=== PATIENT | male | born 1985 | race Caucasian/White ===

== ENCOUNTER 2020-01-26 10:25 | Inpatient (IN) ==
--- NOTE | 2020-01-26 11:09 | Emergency Department Note ---
Impression & Plan Pneumonia due to 2019-nCoV, Hypoxia, Pneumonia ED Provider Note [facility] [id number] [facility] AGE: 34 SEX: M : 1985 ARRIVES VIA: Ambulance INFORMANT: Patient, ED PROVIDER(S): Pratik Gaffney DO CHIEF COMPLAINT: Shortness of breath HPI: The patient is a 34-year-old male who presented to the emergency department from [facility] for an evaluation of difficulty breathing. The patient's had ongoing difficulty breathing for at least 1 week. He was tested for COVID-19 and was positive this week. The patient continued to have worsening difficulty breathing. He was noted to have oxygen saturation in the 80s today and was sent to the emergency department for further evaluation. The patient describes chest pain and cough. He denies having any vomiting but states he did have abdominal pain early in the course of this illness. He denies having any lower extremity swelling or pain. He states his symptoms are moderate to severe with any ambulation or exertion. He denies having any recent falls. The patient was seen by the nursing staff today and was felt to have worsening symptoms. His fever was 103.9 earlier. ROS: See above HPI for pertinent positives & negatives. A total of 10 systems reviewed and were otherwise negative. PAST MEDICAL HISTORY: See Below PAST SURGICAL HISTORY: See Below FAMILY HISTORY: See Below SOCIAL HISTORY: See Below HOME MEDICATIONS: See Below ALLERGIES: See Below VITALS: See Below PHYSICAL EXAMINATION: GENERAL: Patient is awake alert in no acute distress patient is resting comfortably and showing no signs of anxiety EYES: The conjunctivae are clear. The pupils are round and reactive. EARS, NOSE, MOUTH AND THROAT: The nose is without any evidence of any deformity. Mucous membranes are moist. Tongue is midline. NECK: The neck is nontender and supple. RESPIRATORY: Shallow respirations were noted. There were diminished breath sounds noted throughout with scattered rhonchi. CARDIOVASCULAR: Regular rate and rhythm noted there no murmurs rubs or gallops normal S1 normal S2. GASTROINTESTINAL: The abdomen is soft. Abdomen is nontender. MUSCULOSKELETAL/EXTREMITIES: There is no evidence of gross deformity full range of motion is noted in the hips and shoulders. SKIN: There is no obvious evidence of any rash. There are no petechiae, pallor or cyanosis noted. NEUROLOGIC: Patient is awake alert and oriented x3 strength is symmetric patellar reflexes are 2+ bilaterally MEDICAL DECISION MAKING: The patient is a 34-year-old male who presented to the emergency department for an evaluation of difficulty breathing. The patient was recently diagnosed with COVID-19. He has been having fevers. He was started on aspirin and Tylenol for fever and body aches. He was [facility] the [facility] staff [facility] today and was sent to the emergency department for further evaluation because of low oxygen saturation. The patient appeared comfortable but had significant difficulty breathing with any exertion and was found to be hypoxic. On nasal cannula oxygen his saturations were acceptable. Chest x-ray revealed bilateral infiltrates. He was treated with IV antibiotics however I do feel this is much more consistent with COVID-19 pneumonia. I discussed the patient's laboratory and radiographic studies with the on-call [facility] hospitalist. They have agreed to evaluate the patient. He was started on Decadron. He was also given IV antibiotics. Triage Nursing notes reviewed. Prior medical records reviewed Vital Signs: reviewed and remarkable for hypoxia. Differential diagnosis: Reactive airway disease, pneumonia, pneumothorax, COPD, CHF, infections, cardiac ischemia, pulmonary embolism, musculoskeletal, gastrointestinal, as well as other pathologies. ER treatment provided: See below Diagnostics interpreted by me: ECG: EKG was obtained in the emergency department. My interpretation is normal sinus rhythm at 85 bpm. There is no ectopy. There was no acute ST segment abnormalities noted. No previous tracing was available for comparison. Cardiac Monitoring: An order was placed for continuous cardiac monitoring. The monitor shows a rate of 82 bpm with sinus rhythm. Laboratory studies: As stated above and show below. Imaging studies: See below Consultation(s): 1230: I discussed this case with Dr. Hamilton. Past Med/Surg History Medical History History of HPV infection Hyperlipidemia Family History (Updated 01/26/20 @ 13:11 by Lala Hamilton DO) Denies family history of Myocardial infarction Stroke Social History Smoking Status: Never smoker Hx Alcohol Use: No Feels Safe at Home: Yes Allergies Allergies Allergy/AdvReac Type Severity Reaction Status Date / Time No Known Allergies Allergy Unverified 01/26/20 11:54 Home Meds Home Medications Medication Instructions Recorded Confirmed acetaminophen [Tylenol] 650 mg PO UD PRN 01/26/20 01/26/20 aspirin [Aspir-81] 81 mg PO DAILY 01/26/20 01/26/20 Results & Data (ED) Vital Signs Vital Signs - 24 hr 01/26/20 10:32 01/26/20 10:35 01/26/20 10:44 Temperature 37.1 C Temperature Source Oral Pulse Rate 85 85 85 Pulse Rate from SpO2 Sensor 85 85 Respiratory Rate 24 20 22 Blood Pressure 119/78 119/78 Blood Pressure Mean 85 91 Pulse Oximetry 94 94 88 L Oxygen Delivery Method Nasal Cannula Nasal Cannula Room Air Nasal Cannula Oxygen Flow Rate 3 3 0 Sepsis Recent Fever Within 48 Hours No Sepsis New/Unexplained Change in Mental Status No Sepsis Action Taken by Nursing No Action Required Oxygen Flow Rate - Titration 2 Pulse Oximetry Post Tiitration 93 01/26/20 11:00 01/26/20 11:02 01/26/20 11:30 Temperature Temperature Source Pulse Rate 85 86 89 Pulse Rate from SpO2 Sensor 84 90 Respiratory Rate 22 22 22 Blood Pressure Blood Pressure Mean Pulse Oximetry 94 94 93 Oxygen Delivery Method Nasal Cannula Nasal Cannula Nasal Cannula Oxygen Flow Rate 3 3 3 Sepsis Recent Fever Within 48 Hours Sepsis New/Unexplained Change in Mental Status Sepsis Action Taken by Nursing Oxygen Flow Rate - Titration Pulse Oximetry Post Tiitration 01/26/20 12:00 01/26/20 12:01 01/26/20 12:30 Temperature Temperature Source Pulse Rate 82 82 79 Pulse Rate from SpO2 Sensor 81 82 79 Respiratory Rate 22 20 22 Blood Pressure 117/79 128/76 Blood Pressure Mean 92 88 Pulse Oximetry 92 93 94 Oxygen Delivery Method Nasal Cannula Nasal Cannula Nasal Cannula Oxygen Flow Rate 3 3 3 Sepsis Recent Fever Within 48 Hours Sepsis New/Unexplained Change in Mental Status Sepsis Action Taken by Nursing Oxygen Flow Rate - Titration Pulse Oximetry Post Tiitration 01/26/20 12:31 01/26/20 13:00 01/26/20 13:30 Temperature Temperature Source Pulse Rate 80 79 75 Pulse Rate from SpO2 Sensor 80 79 76 Respiratory Rate 22 20 22 Blood Pressure 112/67 Blood Pressure Mean 80 Pulse Oximetry 94 92 93 Oxygen Delivery Method Nasal Cannula Nasal Cannula Nasal Cannula Oxygen Flow Rate 3 3 3 Sepsis Recent Fever Within 48 Hours Sepsis New/Unexplained Change in Mental Status Sepsis Action Taken by Nursing Oxygen Flow Rate - Titration Pulse Oximetry Post Tiitration 01/26/20 13:31 Temperature Temperature Source Pulse Rate 76 Pulse Rate from SpO2 Sensor 75 Respiratory Rate 20 Blood Pressure Blood Pressure Mean Pulse Oximetry 93 Oxygen Delivery Method Nasal Cannula Oxygen Flow Rate 3 Sepsis Recent Fever Within 48 Hours Sepsis New/Unexplained Change in Mental Status Sepsis Action Taken by Nursing Oxygen Flow Rate - Titration Pulse Oximetry Post Tiitration Home Medications Current Medication List: was personally reviewed by me Laboratory Data Attestation: I reviewed the patient's lab results. Result diagrams: 01/26/20 10:40 01/26/20 10:40 Lab Results 01/26/20 01/26/20 01/26/20 Range/Units 10:40 10:40 10:40 WBC 3.73 L (4.8-10.8) K/uL RBC 5.55 (4.7-6.1) M/uL Hgb 16.2 (14.0-18.0) g/dL Hct 47.6 (42-52) % MCV 85.8 (80-100) fL MCH 29.2 (25-34) pg MCHC 34.0 (32-36) g/dL RDW Std Deviation 41.1 (36.4-46.3) fL RDW Coeff of Meena 12.9 (11.5-14.5) % Plt Count 148 (130-400) K/uL MPV 10.9 H (7.4-10.4) fL Immature Gran % (Auto) 0.3 % Neut % (Auto) 70.7 % Lymph % (Auto) 22.3 % Fisher % (Auto) 6.7 % Eos % (Auto) 0.0 % Baso % (Auto) 0.0 % Neut # (Auto) 2.64 (1.4-6.5) K/uL Lymph # (Auto) 0.83 L (1.2-3.4) K/uL Fisher # (Auto) 0.25 (0.11-0.59) K/uL Eos # (Auto) 0.00 (0-0.5) K/uL Baso # (Auto) 0.00 (0-0.2) K/uL Immature Gran # (Auto) 0.01 (0.00-0.02) K/uL PT 11.5 (9.0-12.0) Seconds INR 1.1 (0.9-1.1) APTT 34.4 H (21.0-31.0) Seconds PTT Ratio 1.2 VBG pH (7.36-7.41) VBG pCO2 (38-50) mmHg VBG pO2 mmHg VBG HCO3 mmol/L VBG O2 Saturation % VBG Base Excess mEq/L Barometric Pressure mm/Hg Sodium 131 L (136-145) mmol/L Potassium 3.5 (3.5-5.1) mmol/L Chloride 95 L (98-107) mmol/L Carbon Dioxide 30 (21-32) mmol/L Anion Gap 6.0 (3-11) BUN 9 (7-18) mg/dl Creatinine 0.91 (0.6-1.4) mg/dl Est Cr Clr Drug Dosing 118.9 ml/min Est GFR ( Amer) 125.2 Est GFR (Non-Af Amer) 108.0 BUN/Creatinine Ratio 10.1 (10-20) Glucose 99 (70-99) mg/dl Lactate (0.4-2.0) mmol/L Calcium 8.2 L (8.5-10.1) mg/dl Magnesium 2.4 (1.8-2.4) mg/dl Total Bilirubin 0.6 (0.2-1) mg/dl AST 57 H (15-37) U/L ALT 36 (12-78) U/L Alkaline Phosphatase 42 L (45-117) U/L Troponin I < 0.015 (0-0.045) ng/ml Total Protein 7.6 (6.4-8.2) gm/dl Albumin 3.1 L (3.4-5.0) gm/dl Globulin 4.5 H (2.5-4.0) gm/dl Albumin/Globulin Ratio 0.7 L (0.9-2) Procalcitonin (0-0.5) ng/ml COVID-19 Eval Order SARS-CoV-2, RNA, NAAT (NEGATIVE) Blood Type Antibody Screen 01/26/20 01/26/20 01/26/20 Range/Units 10:40 11:18 11:18 WBC (4.8-10.8) K/uL RBC (4.7-6.1) M/uL Hgb (14.0-18.0) g/dL Hct (42-52) % MCV (80-100) fL MCH (25-34) pg MCHC (32-36) g/dL RDW Std Deviation (36.4-46.3) fL RDW Coeff of Meena (11.5-14.5) % Plt Count (130-400) K/uL MPV (7.4-10.4) fL Immature Gran % (Auto) % Neut % (Auto) % Lymph % (Auto) % Fisher % (Auto) % Eos % (Auto) % Baso % (Auto) % Neut # (Auto) (1.4-6.5) K/uL Lymph # (Auto) (1.2-3.4) K/uL Fisher # (Auto) (0.11-0.59) K/uL Eos # (Auto) (0-0.5) K/uL Baso # (Auto) (0-0.2) K/uL Immature Gran # (Auto) (0.00-0.02) K/uL PT (9.0-12.0) Seconds INR (0.9-1.1) APTT (21.0-31.0) Seconds PTT Ratio VBG pH (7.36-7.41) VBG pCO2 (38-50) mmHg VBG pO2 mmHg VBG HCO3 mmol/L VBG O2 Saturation % VBG Base Excess mEq/L Barometric Pressure mm/Hg Sodium (136-145) mmol/L Potassium (3.5-5.1) mmol/L Chloride (98-107) mmol/L Carbon Dioxide (21-32) mmol/L Anion Gap (3-11) BUN (7-18) mg/dl Creatinine (0.6-1.4) mg/dl Est Cr Clr Drug Dosing ml/min Est GFR ( Amer) Est GFR (Non-Af Amer) BUN/Creatinine Ratio (10-20) Glucose (70-99) mg/dl Lactate (0.4-2.0) mmol/L Calcium (8.5-10.1) mg/dl Magnesium (1.8-2.4) mg/dl Total Bilirubin (0.2-1) mg/dl AST (15-37) U/L ALT (12-78) U/L Alkaline Phosphatase (45-117) U/L Troponin I (0-0.045) ng/ml Total Protein (6.4-8.2) gm/dl Albumin (3.4-5.0) gm/dl Globulin (2.5-4.0) gm/dl Albumin/Globulin Ratio (0.9-2) Procalcitonin 0.16 (0-0.5) ng/ml COVID-19 Eval [facility] SARS-CoV-2, RNA, NAAT POSITIVE A* (NEGATIVE) Blood Type Antibody Screen 01/26/20 01/26/20 01/26/20 Range/Units 11:24 11:24 13:03 WBC (4.8-10.8) K/uL RBC (4.7-6.1) M/uL Hgb (14.0-18.0) g/dL Hct (42-52) % MCV (80-100) fL MCH (25-34) pg MCHC (32-36) g/dL RDW Std Deviation (36.4-46.3) fL RDW Coeff of Meena (11.5-14.5) % Plt Count (130-400) K/uL MPV (7.4-10.4) fL Immature Gran % (Auto) % Neut % (Auto) % Lymph % (Auto) % Fisher % (Auto) % Eos % (Auto) % Baso % (Auto) % Neut # (Auto) (1.4-6.5) K/uL Lymph # (Auto) (1.2-3.4) K/uL Fisher # (Auto) (0.11-0.59) K/uL Eos # (Auto) (0-0.5) K/uL Baso # (Auto) (0-0.2) K/uL Immature Gran # (Auto) (0.00-0.02) K/uL PT (9.0-12.0) Seconds INR (0.9-1.1) APTT (21.0-31.0) Seconds PTT Ratio VBG pH 7.40 (7.36-7.41) VBG pCO2 48 (38-50) mmHg VBG pO2 29 mmHg VBG HCO3 29 mmol/L VBG O2 Saturation < 60.0 % VBG Base Excess 3.0 mEq/L Barometric Pressure 741.1 mm/Hg Sodium (136-145) mmol/L Potassium (3.5-5.1) mmol/L Chloride (98-107) mmol/L Carbon Dioxide (21-32) mmol/L Anion Gap (3-11) BUN (7-18) mg/dl Creatinine (0.6-1.4) mg/dl Est Cr Clr Drug Dosing ml/min Est GFR ( Amer) Est GFR (Non-Af Amer) BUN/Creatinine Ratio (10-20) Glucose (70-99) mg/dl Lactate 1.1 (0.4-2.0) mmol/L Calcium (8.5-10.1) mg/dl Magnesium (1.8-2.4) mg/dl Total Bilirubin (0.2-1) mg/dl AST (15-37) U/L ALT (12-78) U/L Alkaline Phosphatase (45-117) U/L Troponin I (0-0.045) ng/ml Total Protein (6.4-8.2) gm/dl Albumin (3.4-5.0) gm/dl Globulin (2.5-4.0) gm/dl Albumin/Globulin Ratio (0.9-2) Procalcitonin (0-0.5) ng/ml COVID-19 Eval Order SARS-CoV-2, RNA, NAAT (NEGATIVE) Blood Type Cancelled Antibody Screen Cancelled Administered Medications Discontinued Medications Dexamethasone (Dexamethasone Sod Inj 10 Mg/Ml Vial) 10 mg IV NOW ONE Stop: 01/26/20 11:23 Last Admin: 01/26/20 11:58 Dose: 10 mg Documented by: [id number] Piperacillin Sod/Tazobactam Sod (Zosyn) 4.5 gm in 120 mls @ 240 mls/hr IV NOW ONE Stop: 01/26/20 12:45 Last Infusion: 01/26/20 13:22 Dose: 0 mls/hr Documented by: [id number] Admin: 01/26/20 12:49 Dose: 240 mls/hr Documented by: [id number] Imaging Data Radiologist's Impression: Patient: VINEET GRUBER [id number] Date: 01/26/20MR#: [id number]: Acct ID:[id number]: Date: 1985[facility] Zip: Age: 34Location: EDSex: MRoom/Bed:Att Phy:Diagnosis: SO BPri Phy: PCP,NOService Date: 01/26/20Fa Phy:Interpreting Phy: Delroy Gonzalez MDAdmit Phy: Ordering Phy: Pratik Gaffney DO cc: ~ XR chest 1V portable CLINICAL HISTORY: SEPSIS COMPARISON STUDY: No previous studies for comparison. FINDINGS: There is mild elevation of the right hemidiaphragm. No pneumothorax or pleural effusion is noted. Multifocal bilateral airspace opacities are present. Cardiac size is at the upper limits of normal. There is no evidence for pulmonary edema. IMPRESSION: Multifocal bilateral airspace opacities consistent with an infectious process. Radiographic follow up is recommended. ACT 112: Negative or not required by law. Electronically signed by: Delroy Gonzalez M.D. 01/26/2020 11:40 AM Dictated: 01/26/20 1138Transcribed: 01/26/20 1138 Blood Pressure Blood Pressure Findings: Normal blood pressure Discharge Plan Visit Data Chief Complaint: Shortness of Breath/Dyspnea ED Provider: Pratik Gaffney Discharge Problem: Pneumonia due to 2019-nCoV, Hypoxia, Pneumonia Patient Disposition: Admitted As Inpatient Condition: Good Discharge Instructions Krames/Other Patient Handouts: 2019-nCoV Interventions: ED Discharge Assessment Last Done: 01/26/20 13:38 Forms Stand Alone Forms: [place] Prescriptions Prescriptions: No Action acetaminophen [Tylenol] 325 mg Tablet 650 mg PO UD PRN (Reason: Fever Or Pain) RF: 0 aspirin [Aspir-81] 81 mg Tablet,Delayed Release (Dr/Ec) 81 mg PO DAILY RF: 0 Referrals Referrals: PCP,NO [Primary Care Provider] -
[2020-01-26 11:17] LABS: Hematocrit (blood only) 47.6 % (42-52); Hemoglobin 16.2 g/dL (14.0-18.0); Immature Granulocytes # (auto) 0.01 K/uL (0.00-0.02); Immature Granulocytes % (auto) 0.3 %; Lymphocytes # (auto) 0.83 K/uL (1.2-3.4); Lymphocytes % (auto) 22.3 %; Mean Corpuscular Hemoglobin 29.2 pg (25-34); Mean Corpuscular Volume 85.8 fL (80-100); Mean Platelet Volume 10.9 fL (7.4-10.4); Monocytes # (auto) 0.25 K/uL (0.11-0.59); Monocytes % (auto) 6.7 %; Neutrophils # (auto) 2.64 K/uL (1.4-6.5); Neutrophils % (auto) 70.7 %; Platelet Count 148 K/uL (130-400); RDW Coefficient of Variation 12.9 % (11.5-14.5); RDW Standard Deviation 41.1 fL (36.4-46.3); Red Blood Count 5.55 M/uL (4.7-6.1); White Blood Count 3.73 K/uL (4.8-10.8)
[2020-01-26] MEDS ORDERED: DEXAMETHASONE SOD INJ 10 MG/ML VIAL IV ONE (11:22)
[2020-01-26 11:28] LABS: INR 1.1 (0.9-1.1); Partial Thromboplastin Ratio 1.2; Partial Thromboplastin Time 34.4 Seconds (21.0-31.0); Prothrombin Time 11.5 Seconds (9.0-12.0)
[2020-01-26 11:33] LABS: Alanine Aminotransferase 36 U/L (12-78); Albumin Level 3.1 gm/dl (3.4-5.0); Aspartate Aminotransferase 57 U/L (15-37); BUN Creatinine Ratio 10.1 (10-20); Blood Urea Nitrogen 9 mg/dl (7-18); Calcium 8.2 mg/dl (8.5-10.1); Carbon Dioxide 30 mmol/L (21-32); Chloride 95 mmol/L (98-107); Creatinine Clr Calc Pharmacy 118.9 ml/min; Est GFR (African American) 125.2; Glucose 99 mg/dl (70-99); Magnesium 2.4 mg/dl (1.8-2.4); Potassium 3.5 mmol/L (3.5-5.1); Sodium 131 mmol/L (136-145)
[2020-01-26 11:38] LABS: Albumin Globulin Ratio 0.7 (0.9-2); Alkaline Phosphatase 42 U/L (45-117); Bilirubin,Total 0.6 mg/dl (0.2-1); Globulin 4.5 gm/dl (2.5-4.0); Total Protein 7.6 gm/dl (6.4-8.2); Troponin I < 0.015 ng/ml (0-0.045)
--- NOTE | 2020-01-26 11:42 | XRay Report ---
XR chest 1V portable CLINICAL HISTORY: SEPSIS COMPARISON STUDY: No previous studies for comparison. FINDINGS: There is mild elevation of the right hemidiaphragm. No pneumothorax or pleural effusion is noted. Multifocal bilateral airspace opacities are present. Cardiac size is at the upper limits of no rmal. There is no evidence for pulmonary edema. IMPRESSION: Multifocal bilateral airspace opacities consistent with an infectious process. Radiograp hic follow up is recommended. ACT 112: Negative or not required by law. Electronically signed by: Delroy Gonzalez M.D. 01/26/2020 11:40 AM
[2020-01-26 11:45] LABS: HCO3 VBG 29 mmol/L; PCO2 VBG 48 mmHg (38-50); PO2 VBG 29 mmHg
[2020-01-26 11:52] LABS: Oxygen Saturation VBG < 60.0 %
[2020-01-26] MEDS ORDERED: PIPERACILLIN/TAZOBACTAM 4.5 GM/120 ML BAG IV ONE (12:16)
[2020-01-26] MEDS ORDERED: PIPERACILL/TAZOBAC CONSULT ACTIVE PRN ×2 (12:16→15:38)
--- NOTE | 2020-01-26 12:57 | Electrocardiogram Report ---
Test Reason : Blood Pressure : / mmHG Vent. Rate : 085 BPM Atrial Rate : 085 BPM P-R Int : 178 ms QRS Dur : 080 ms QT Int : 356 ms P-R-T Axes : 028 078 032 degrees QTc Int : 423 ms Normal sinus rhythm Possible Left atrial enlargement Borderline ECG No previous ECGs available Confirmed by Pratik Zaldivar ([id number]) on 01/26/2020 12:56:51 PM Referred By: Confirmed By:Pratik Zaldivar
--- NOTE | 2020-01-26 13:14 | History & Physical Report ---
Date of Service January 26, 2020 Assessment & Plan (1) Hypoxia: COVID + on Wednesday at facility, again in the ED CXR noted for b/l PNA Started on zosyn in the ED, will continue Procal neg and lactic acid is WNL, will have a low threshold to continue if pt is improving Started on dexamethasone in the ED, will continue Will start remdesivir given O2 sats in the 80s on RA and 93-94 on 3L Blood cx pending K is low normal, NS with K (2) Constipation: MOM,senna for constipation (3) DVT prophylaxis: Heparin BID for DVT proph Of note, aspirin 81mg listed on pt's home medications Pt denies hx of [place] or daily aspirin 81mg use, this will be held History of Present Illness Primary Care Provider: NO PCP 34 y/o M c/o SOB. Pt was dx at [facility] with COVID on Wednesday. He has had progressive SALAZAR since that time and was found to be hypoxic in the mid-80s at the facility prior to being transferred to the ED at [facility]. He denies SOB at rest. He states he has been able to eat without issue, but his appetite is low. He has not had a bowel movement in 3-4 days. No diarrhea prior. No chest pain. Pt denies abd pain, LE pain or swelling. Pt has been having fevers. Pt states he has been getting tylenol at the facility Pt started on zosyn, dexamethasone, O2 via NC and states he is feeling better overall, but still feels generally unwell. He has not been OOB to see if his SALAZAR is improving. Allergies Allergy/AdvReac Type Severity Reaction Status Date / Time No Known Allergies Allergy Unverified 01/26/20 11:54 Home Medications Medication Instructions Recorded Confirmed Type acetaminophen [Tylenol] 650 mg PO UD PRN 01/26/20 01/26/20 History aspirin [Aspir-81] 81 mg PO DAILY 01/26/20 01/26/20 History Past Med/Surg History Medical History History of HPV infection Hyperlipidemia Family History (Updated 01/26/20 @ 13:11 by Lala Hamilton DO) Denies family history of Myocardial infarction Stroke Social History Smoking Status: Never smoker Hx Alcohol Use: No Feels Safe at Home: Yes Review of Systems Review of Systems: Pertinent positives and negatives reviewed in HPI--all others negative Physical Exam Constitutional: WD/WN, vitals as above Eyes: normal visual lopez by confrontation and + anicteric sclerae Neck: normal visual inspection and trachea midline Respiratory: normal respiratory effort, lungs clear to auscultation (using infection control stethoscope) Cardiovascular: Rate/Rhythm: regular rate and regular rhythm Gastrointestinal (Abdomen): Inspection/Auscultation: abdomen not distended Percussion/Palpation: abdomen soft; abdomen nontender Musculoskeletal: Head/Neck/Chest: normocephalic and head atraumatic negative for edema, peripheral pulses intact Skin: no rashes, warm and dry Neurologic: awake; not confused Speech / Cognition: normal speech Psychiatric: A+Ox3, euthymic affect Results & Data Results & Data ([facility]) Vital Signs (Past 12 Hours) Vital Signs Temp Pulse Resp BP Pulse Ox 01/26/20 12:31 80 22 94 01/26/20 12:30 79 22 128/76 94 01/26/20 12:01 82 20 93 01/26/20 12:00 82 22 117/79 92 01/26/20 11:30 89 22 93 01/26/20 11:02 86 22 94 01/26/20 11:00 85 22 94 01/26/20 10:44 37.1 C 85 22 119/78 88 L 01/26/20 10:35 85 20 94 01/26/20 10:32 85 24 119/78 94 Diagnostic Findings CXR: b/l PNA PG Care Time/CCT Total # of Minutes Spent Total Time Spent with Patient: Total time spent is greater than 50% in coordination of care (as documented) at patient's floor/unit and/or counseling patient: Coding Level of Care Code 13153 Initial Inpt Care Lvl 3 Diagnoses Hypoxia R09.02 Constipation K59.00 DVT prophylaxis Z29.9
[2020-01-26] MEDS ORDERED: ACETAMINOPHEN 325 MG TAB PO PRN (15:38)
[2020-01-26] MEDS ORDERED: REMDESIVIR 200 MG in SODIUM CHLORIDE 0.9% 210 ML IV STA (15:38)
[2020-01-26] MEDS ORDERED: INFLUENZA ADMINISTRATION CHARGE ONE (15:57)
[2020-01-26] MEDS ORDERED: INFLUENZA VIRUS QUAD VACCINE 0.5 ML SYR IM ONE (15:57)
[2020-01-26] MEDS: NSS + 20MEQ KCL 20 MEQ/1,000 ML BAG IV SCH (17:20)
[2020-01-26] MEDS: SENNA 8.6 MG TAB PO SCH (17:49)
[2020-01-26] MEDS: MAGNESIUM HYDROXIDE SUSP 30 ML UDC PO SCH (17:50)
[2020-01-26] MEDS: PIPERACILLIN/TAZOBACTAM 3.375 GM in DEXTROSE 5% 100 ML IV SCH (17:52)
[2020-01-26] MEDS: SODIUM CHLORIDE 0.9% 10ML FLUSH IV SCH (18:27)
[2020-01-26] MEDS: HEPARIN SOD 5,000 UNIT/0.5 ML VIAL SQ SCH (20:45)
[2020-01-26 21:24] LABS: Appearance Urine Clear (Clear); Bacteria Urine Automated Negative (Negative); Bilirubin Urine Negative (Negative); Blood Urine Negative (Negative); Color Urine Yellow; Epithelial Cell Urine Auto >30 /lpf (0-5); Glucose Urine UA Negative (Negative); Ketones Urine 1+ (Negative); Leukocyte Esterase Urine Negative (Negative); Nitrite Urine Negative (Negative); Protein Urine 2+ (Negative); RBC Urine Automated 0-4 /hpf (0-4); Urobilinogen Urine Negative (Negative); pH Urine 5.5 (4.5-7.5)
[2020-01-26 21:37] LABS: Mucus Urine Present (None Prsent)
[2020-01-27] MEDS: PIPERACILLIN/TAZOBACTAM 3.375 GM in DEXTROSE 5% 100 ML IV SCH ×3 (01:44→21:08)
[2020-01-27] MEDS: NSS + 20MEQ KCL 20 MEQ/1,000 ML BAG IV SCH ×3 (01:44→21:14)
[2020-01-27 06:37] LABS: BUN Creatinine Ratio 14.5 (10-20); Calcium 7.9 mg/dl (8.5-10.1); Creatinine Clr Calc Pharmacy 116.5 ml/min; Est GFR (African American) 120.4; Est GFR (Non-African American) 103.9; Potassium 4.5 mmol/L (3.5-5.1)
[2020-01-27] MEDS: HEPARIN SOD 5,000 UNIT/0.5 ML VIAL SQ SCH ×2 (09:04→21:10)
[2020-01-27] MEDS: dexAMETHasone 6 MG in SYRINGE 0 ML IV SCH (09:05)
[2020-01-27] MEDS: SENNA 8.6 MG TAB PO SCH (09:06)
[2020-01-27] MEDS: MAGNESIUM HYDROXIDE SUSP 30 ML UDC PO SCH (09:06)
[2020-01-27] MEDS: REMDESIVIR 100 MG in SODIUM CHLORIDE 0.9% 230 ML IV SCH (16:01)
[2020-01-27] MEDS: SODIUM CHLORIDE 0.9% 10ML FLUSH IV SCH (17:36)
--- NOTE | 2020-01-27 22:26 | Hospitalist Progress Note ---
Date of Service January 27, 2020 Assessment & Plan (1) Hypoxia: COVID + on Wednesday at facility, again in the ED CXR noted for b/l PNA Started on zosyn in the ED, will continue Procal neg and lactic acid is WNL Started on dexamethasone in the ED, will continue Will contiue remdesivir #day 2. Patient is on oxymask. will continue antibiotics as well. K is low normal, NS with K (2) Constipation: MOM,senna for constipation (3) DVT prophylaxis: Heparin BID for DVT proph Of note, aspirin 81mg listed on pt's home medications Pt denies hx of [place] or daily aspirin 81mg use, this will be held Admission and Anticipated Discharge Date Admission Date: January 26, 2020 Subjective 34 yo male reports feeling mildly better today. However, requiring more oxygen. She has no new complaints at this time. Review of Systems Review of Systems: All systems reviewed & are unremarkable except as noted in HPI & below Physical Exam Physical Exam: Constitutional: WD/WN, vitals as above Eyes: normal visual lopez by confrontation and + anicteric sclerae Neck: normal visual inspection and trachea midline Respiratory: normal respiratory effort, lungs clear to auscultation (using infection control stethoscope) Cardiovascular: Rate/Rhythm: regular rate and regular rhythm Gastrointestinal (Abdomen): Inspection/Auscultation: abdomen not distended Percussion/Palpation: abdomen soft; abdomen nontender Musculoskeletal: \Head/Neck/Chest: normocephalic and head atraumatic negative for edema, peripheral pulses intact Skin: no rashes, warm and dry Neurologic: awake; not confused Speech / Cognition: normal speech Psychiatric: A+Ox3, euthymic affect Results & Data Results & Data ([facility]) Vital Signs (Past 12 Hours) Vital Signs Temp Pulse Pulse Resp BP Pulse Ox 01/27/20 21:16 36.9 C 65 20 117/76 93 01/27/20 14:20 64 01/27/20 14:17 36.6 C 64 16 110/70 94 01/27/20 11:30 36.7 C 67 18 115/73 92 PG Care Time/CCT Total # of Minutes Spent Total Time Spent with Patient: Total time spent is greater than 50% in coordination of care (as documented) at patient's floor/unit and/or counseling patient: Coding Level of Care Code 74453 Subseq Hosp Care Lvl 3 Diagnoses Hypoxia R09.02 Constipation K59.00 DVT prophylaxis Z29.9 Time Spent (min) 35
[2020-01-28] MEDS: PIPERACILLIN/TAZOBACTAM 3.375 GM in DEXTROSE 5% 100 ML IV SCH ×3 (04:13→21:24)
[2020-01-28 07:05] LABS: BUN Creatinine Ratio 17.9 (10-20); Calcium 7.9 mg/dl (8.5-10.1); Creatinine Clr Calc Pharmacy 134.3 ml/min; Est GFR (African American) 131.9; Est GFR (Non-African American) 113.8; Potassium 4.5 mmol/L (3.5-5.1)
[2020-01-28] MEDS: NSS + 20MEQ KCL 20 MEQ/1,000 ML BAG IV SCH ×2 (07:46→17:47)
[2020-01-28] MEDS: SENNA 8.6 MG TAB PO SCH (08:06)
[2020-01-28] MEDS: HEPARIN SOD 5,000 UNIT/0.5 ML VIAL SQ SCH ×2 (08:06→21:34)
[2020-01-28] MEDS: dexAMETHasone 6 MG in SYRINGE 0 ML IV SCH (08:06)
[2020-01-28] MEDS: MAGNESIUM HYDROXIDE SUSP 30 ML UDC PO SCH (08:07)
[2020-01-28] MEDS: REMDESIVIR 100 MG in SODIUM CHLORIDE 0.9% 230 ML IV SCH (16:04)
[2020-01-28] MEDS: SODIUM CHLORIDE 0.9% 10ML FLUSH IV SCH (17:30)
--- NOTE | 2020-01-28 22:31 | Hospitalist Progress Note ---
Date of Service January 28, 2020 Assessment & Plan (1) Hypoxia: COVID + on Wednesday at facility, again in the ED CXR noted for b/l PNA Started on zosyn in the ED, will continue Procal neg and lactic acid is WNL Started on dexamethasone in the ED, will continue day 3 of 10. Will contiue remdesivir #day 3. Patient was on oxymask 10 liters/ transitioned to nasal cannula 7 liters flow will continue antibiotics as well. (2) Constipation: MOM,senna for constipation (3) DVT prophylaxis: Heparin BID for DVT proph Of note, aspirin 81mg listed on pt's home medications Pt denies hx of [place] or daily aspirin 81mg use, this will be held Admission and Anticipated Discharge Date Admission Date: January 26, 2020 Subjective Patient is feeling better, breathing more comfortably. Patient states he is happy with his progress. Oxygen requirements have decreased from 10 to 7 liters nsal cannula. Review of Systems Review of Systems: All systems reviewed & are unremarkable except as noted in HPI & below Physical Exam Physical Exam: Constitutional: WD/WN, vitals as above Eyes: normal visual lopez by confrontation and + anicteric sclerae Neck: normal visual inspection and trachea midline Respiratory: normal respiratory effort, lungs clear to auscultation (using infection control stethoscope) Cardiovascular: Rate/Rhythm: regular rate and regular rhythm Gastrointestinal (Abdomen): Inspection/Auscultation: abdomen not distended Percussion/Palpation: abdomen soft; abdomen nontender Musculoskeletal: \Head/Neck/Chest: normocephalic and head atraumatic negative for edema, peripheral pulses intact Skin: no rashes, warm and dry Neurologic: awake; not confused Speech / Cognition: normal speech Psychiatric: A+Ox3, euthymic affect Results & Data Results & Data ([facility]) Vital Signs (Past 12 Hours) Vital Signs Temp Pulse Pulse Resp BP BP Pulse Ox 01/28/20 19:00 37.1 C 62 17 125/81 91 01/28/20 14:56 36.8 C 64 18 128/78 92 01/28/20 14:20 52 L 01/28/20 12:25 36.3 C L 76 18 124/77 93 PG Care Time/CCT Total # of Minutes Spent Total Time Spent with Patient: Total time spent is greater than 50% in coordination of care (as documented) at patient's floor/unit and/or counseling patient: Coding Level of Care Code 09216 Subseq Hosp Care Lvl 3 Diagnoses Hypoxia R09.02 Constipation K59.00 DVT prophylaxis Z29.9
[2020-01-29] MEDS: PIPERACILLIN/TAZOBACTAM 3.375 GM in DEXTROSE 5% 100 ML IV SCH ×2 (04:23→12:33)
[2020-01-29] MEDS: NSS + 20MEQ KCL 20 MEQ/1,000 ML BAG IV SCH (04:23)
[2020-01-29 06:45] LABS: Hematocrit (blood only) 45.6 % (42-52); Hemoglobin 15.1 g/dL (14.0-18.0); Mean Corpuscular Hemoglobin 29.3 pg (25-34); Mean Corpuscular Hgb Conc 33.1 g/dL (32-36); Mean Corpuscular Volume 88.5 fL (80-100); Mean Platelet Volume 10.5 fL (7.4-10.4); Platelet Count 271 K/uL (130-400); RDW Coefficient of Variation 13.2 % (11.5-14.5); RDW Standard Deviation 43.2 fL (36.4-46.3); Red Blood Count 5.15 M/uL (4.7-6.1); White Blood Count 5.47 K/uL (4.8-10.8)
[2020-01-29 07:26] LABS: Albumin Level 2.6 gm/dl (3.4-5.0); BUN Creatinine Ratio 14.6 (10-20); Calcium 7.9 mg/dl (8.5-10.1); Creatinine Clr Calc Pharmacy 121.7 ml/min; Est GFR (African American) 125.2; Potassium 4.7 mmol/L (3.5-5.1)
[2020-01-29 07:31] LABS: Albumin Globulin Ratio 0.7 (0.9-2); Bilirubin,Total 0.8 mg/dl (0.2-1); Ferritin 1746.3 ng/ml (8-388); Total Protein 6.6 gm/dl (6.4-8.2)
[2020-01-29] MEDS: dexAMETHasone 6 MG in SYRINGE 0 ML IV SCH (09:06)
[2020-01-29] MEDS: SENNA 8.6 MG TAB PO SCH (09:08)
[2020-01-29] MEDS: HEPARIN SOD 5,000 UNIT/0.5 ML VIAL SQ SCH ×2 (09:08→22:00)
[2020-01-29] MEDS: MAGNESIUM HYDROXIDE SUSP 30 ML UDC PO SCH (09:21)
--- NOTE | 2020-01-29 13:56 | Hospitalist Progress Note ---
Date of Service January 29, 2020 Assessment & Plan (1) Pneumonia due to 2019-nCoV: see below Dexamethasone, Remdesivir (2) Hypoxia: COVID + on Wednesday at facility, again in the ED CXR noted for b/l PNA acute hypoxic respiratory failure initially on 15L mask, down to 5-6 liters NC today, breathing comfortably continue Remdesivir, day 4 today continue Dexamethasone, day 4 today stop antibiotics as there is no sign of bacterial pneumonia, procalcitonin negative will likely be here a few more days, try to wean oxygen as tolerated Procal neg and lactic acid is WNL Started on dexamethasone in the ED, will continue day 3 of 10. Will contiue remdesivir #day 3. Patient was on oxymask 10 liters/ transitioned to nasal cannula 7 liters flow will continue antibiotics as well. (3) Constipation: 5 days since last BM, he is passing flatus eating well, no nausea will give Miralax daily starting today (4) DVT prophylaxis: Heparin BID for DVT proph Of note, aspirin 81mg listed on pt's home medications Pt denies hx of [place] or daily aspirin 81mg use, this will be held Admission and Anticipated Discharge Date Admission Date: January 26, 2020 Subjective patient still constipated, feeling a lot better in terms of his breathing has a mild cough, down to 5-6 liters NC today he is eating well reviewed the chart today discussed with him that he will be here a few more days communicated with him via [employer] on the iPad Review of Systems Review of Systems: All systems reviewed & are unremarkable except as noted in Subjective Constitutional: + fatigue and + weakness; no fever, no chills and no sweats Respiratory: + cough and + dyspnea on exertion; no dyspnea Gastrointestinal: + constipation; no abdominal pain, no nausea, no vomiting and no diarrhea/loose stools Physical Exam Constitutional: WD/WN, vitals as above Neck: trachea midline, no thyromegaly Respiratory: normal respiratory effort, lungs clear to auscultation Cardiovascular: RRR, no murmur, no edema Gastrointestinal (Abdomen): normal bowel sounds, soft, nontender, no hepatosplenomegaly Musculoskeletal: no cyanosis or clubbing, extremities motor strength 5/5 Skin: no rashes, warm and dry Neurologic: patellar DTR's 2+ bilat, sensation intact and PERRL, EOMI, accommodation nl, no face palsy, no dysarthria Psychiatric: A+Ox3, euthymic affect Lymphatic: no cervical or axillary lymphadenopathy Results & Data Results & Data ([facility]) Vital Signs (Past 12 Hours) Vital Signs Temp Pulse Pulse Resp BP Pulse Ox 01/29/20 12:59 89 L 01/29/20 12:56 37.0 C 62 16 120/76 90 01/29/20 12:45 92 01/29/20 07:31 52 L 01/29/20 04:00 36.7 C 54 L 18 113/72 91 Laboratory Results Laboratory Results - last 24 hr 01/29/20 01/29/20 06:24 06:24 WBC 5.47 RBC 5.15 Hgb 15.1 Hct 45.6 MCV 88.5 MCH 29.3 MCHC 33.1 RDW Std Deviation 43.2 RDW Coeff of Meena 13.2 Plt Count 271 MPV 10.5 H Sodium 136 Potassium 4.7 Chloride 104 Carbon Dioxide 30 Anion Gap 2.0 L BUN 13 Creatinine 0.91 Est Cr Clr Drug Dosing 121.7 Est GFR ( Amer) 125.2 Est GFR (Non-Af Amer) 108.0 BUN/Creatinine Ratio 14.6 Glucose 102 H Calcium 7.9 L Ferritin 1746.3 H Total Bilirubin 0.8 AST 86 H ALT 88 H Alkaline Phosphatase 39 L Total Protein 6.6 Albumin 2.6 L Globulin 4.0 Albumin/Globulin Ratio 0.7 L Medications Administered Current Inpatient Medications Acetaminophen (Acetaminophen 325 Mg Tab) 650 mg PO Q6H PRN PRN Reason: Fever Or Pain Stop: 02/25/20 15:37 Last Admin: 01/26/20 23:31 Dose: 650 mg Documented by: Heparin Sodium (Porcine) (Heparin Sod 5,000 Unit/0.5 Ml Vial) 5,000 units SQ Q12 STEFANY Stop: 02/25/20 20:59 Last Admin: 01/29/20 09:08 Dose: 5,000 units Documented by: Dexamethasone 6 mg/ Syringe 1.5 mls @ 1 mls/min IV DAILY STEFANY Stop: 02/06/20 08:59 Last Admin: 01/29/20 09:06 Dose: 1 mls/min Documented by: Remdesivir 100 mg/ Sodium (Chloride) 250 mls @ 250 mls/hr IV Q24H STEFANY; Protocol Stop: 01/30/20 16:59 Last Infusion: 01/28/20 17:30 Dose: Infused Documented by: Magnesium Hydroxide (Magnesium Hydroxide Susp 30 Ml Udc) 30 ml PO DAILY STEFANY Stop: 02/25/20 15:37 Last Admin: 01/29/20 09:21 Dose: Not Given Documented by: Polyethylene Glycol (Polyethylene (Miralax) 17 Gm Pack) 17 gm PO DAILY STEFANY Stop: 02/28/20 13:59 Sennosides (Senna 8.6 Mg Tab) 17.2 mg PO QAM [facility] Stop: 02/25/20 15:37 Last Admin: 01/29/20 09:08 Dose: 17.2 mg Documented by: Sodium Chloride (Sodium Chloride 0.9% 10ml Flush) 30 ml IV Q24H [facility] Stop: 01/30/20 16:01 Last Admin: 01/28/20 17:30 Dose: 30 ml Documented by: PG Care Time/CCT Total # of Minutes Spent Total Time Spent with Patient: Total time spent is greater than 50% in coordination of care (as documented) at patient's floor/unit and/or counseling patient: Coding Level of Care Code 21762 Subseq Hosp Care Lvl 2 Diagnoses Pneumonia due to 2019-nCoV U07.1; J12.89 Hypoxia R09.02 Constipation K59.00 DVT prophylaxis Z29.9
[2020-01-29] MEDS: POLYETHYLENE (MIRALAX) 17 GM PACK PO SCH (16:20)
[2020-01-29] MEDS: REMDESIVIR 100 MG in SODIUM CHLORIDE 0.9% 230 ML IV SCH (16:20)
[2020-01-29] MEDS: SODIUM CHLORIDE 0.9% 10ML FLUSH IV SCH (18:01)
[2020-01-30 07:56] LABS: BUN Creatinine Ratio 15.6 (10-20); Calcium 8.4 mg/dl (8.5-10.1); Est GFR (African American) 126.9; Est GFR (Non-African American) 109.5; Potassium 4.1 mmol/L (3.5-5.1)
[2020-01-30] MEDS: SENNA 8.6 MG TAB PO SCH (08:58)
[2020-01-30] MEDS: MAGNESIUM HYDROXIDE SUSP 30 ML UDC PO SCH (08:58)
[2020-01-30] MEDS: POLYETHYLENE (MIRALAX) 17 GM PACK PO SCH (08:58)
[2020-01-30] MEDS: dexAMETHasone 6 MG in SYRINGE 0 ML IV SCH (08:58)
[2020-01-30] MEDS: HEPARIN SOD 5,000 UNIT/0.5 ML VIAL SQ SCH ×2 (09:18→21:27)
--- NOTE | 2020-01-30 16:13 | Hospitalist Progress Note ---
Date of Service January 30, 2020 Assessment & Plan (1) Pneumonia due to 2019-nCoV: see below Dexamethasone day 5, Remdesivir completed 01/29 (2) Hypoxia: COVID + on Wednesday at facility, again in the ED CXR noted for b/l PNA acute hypoxic respiratory failure initially on 15L mask, down to 6 liters NC past two days, breathing comfortably finished Remdesivir, day 5 today continue Dexamethasone, day 5 today stop antibiotics as there is no sign of bacterial pneumonia, procalcitonin negative will likely be here a few more days, try to wean oxygen as tolerated (3) Constipation: 6 days since last BM, he is passing flatus eating well, no nausea, no distension started Miralax daily on 01/28, continue until he moves bowels (4) DVT prophylaxis: Heparin BID for DVT proph Of note, aspirin 81mg listed on pt's home medications Pt denies hx of [place] or daily aspirin 81mg use, this will be held Admission and Anticipated Discharge Date Admission Date: January 26, 2020 Subjective patient still requiring 6L but no distress, says he feels a little better than yesterday coughing less still no success in moving his bowels he is eating well, no nausea, no abdominal distension no fever/chills, no diaphoresis BMP with stable CR and electrolytes, minimal elevation in AST/ALT Review of Systems Review of Systems: All systems reviewed & are unremarkable except as noted in Subjective Physical Exam Constitutional: WD/WN, vitals as above Neck: trachea midline, no thyromegaly Respiratory: normal respiratory effort, lungs clear to auscultation Cardiovascular: RRR, no murmur, no edema Gastrointestinal (Abdomen): normal bowel sounds, soft, nontender, no hepatosplenomegaly Musculoskeletal: no cyanosis or clubbing, extremities motor strength 5/5 Skin: no rashes, warm and dry Neurologic: patellar DTR's 2+ bilat, sensation intact and PERRL, EOMI, accommodation nl, no face palsy, no dysarthria Psychiatric: A+Ox3, euthymic affect Lymphatic: no cervical or axillary lymphadenopathy Results & Data Results & Data ([facility]) Vital Signs (Past 12 Hours) Vital Signs Temp Pulse Pulse Resp BP BP Pulse Ox 01/30/20 15:00 65 01/30/20 11:07 36.9 C 76 18 114/76 91 01/30/20 09:05 36.9 C 75 18 122/76 90 01/30/20 07:21 49 L Laboratory Results Laboratory Results - last 24 hr 01/30/20 06:53 Sodium 134 L Potassium 4.1 Chloride 101 Carbon Dioxide 29 Anion Gap 4.0 BUN 14 Creatinine 0.90 Est Cr Clr Drug Dosing 123.0 Est GFR ( Amer) 126.9 Est GFR (Non-Af Amer) 109.5 BUN/Creatinine Ratio 15.6 Glucose 88 Calcium 8.4 L AST 101 H ALT 158 H Medications Administered Current Inpatient Medications Acetaminophen (Acetaminophen 325 Mg Tab) 650 mg PO Q6H PRN PRN Reason: Fever Or Pain Stop: 02/25/20 15:37 Last Admin: 01/26/20 23:31 Dose: 650 mg Documented by: Heparin Sodium (Porcine) (Heparin Sod 5,000 Unit/0.5 Ml Vial) 5,000 units SQ Q12 STEFANY Stop: 02/25/20 20:59 Last Admin: 01/30/20 09:18 Dose: 5,000 units Documented by: Dexamethasone 6 mg/ Syringe 1.5 mls @ 1 mls/min IV DAILY STEFANY Stop: 02/06/20 08:59 Last Admin: 01/30/20 08:58 Dose: 1 mls/min Documented by: Remdesivir 100 mg/ Sodium (Chloride) 250 mls @ 250 mls/hr IV Q24H STEFANY; Protocol Stop: 01/30/20 16:59 Last Infusion: 01/29/20 17:58 Dose: Infused Documented by: Magnesium Hydroxide (Magnesium Hydroxide Susp 30 Ml Udc) 30 ml PO DAILY STEFANY Stop: 02/25/20 15:37 Last Admin: 01/30/20 08:58 Dose: Not Given Documented by: Polyethylene Glycol (Polyethylene (Miralax) 17 Gm Pack) 17 gm PO DAILY STEFANY Stop: 02/28/20 13:59 Last Admin: 01/30/20 08:58 Dose: 17 gm Documented by: Sennosides (Senna 8.6 Mg Tab) 17.2 mg PO QAM STEFANY Stop: 02/25/20 15:37 Last Admin: 01/30/20 08:58 Dose: 17.2 mg Documented by: PG Care Time/CCT Total # of Minutes Spent Total Time Spent with Patient: Total time spent is greater than 50% in coordination of care (as documented) at patient's floor/unit and/or counseling patient: Coding Level of Care Code 66168 Subseq Hosp Care Lvl 2 Diagnoses Pneumonia due to 2019-nCoV U07.1; J12.89 Hypoxia R09.02 Constipation K59.00 DVT prophylaxis Z29.9
[2020-01-30] MEDS: REMDESIVIR 100 MG in SODIUM CHLORIDE 0.9% 230 ML IV SCH (16:24)
[2020-01-30] MEDS: SODIUM CHLORIDE 0.9% 10ML FLUSH IV SCH (17:37)
[2020-01-31] MEDS: dexAMETHasone 6 MG in SYRINGE 0 ML IV SCH (08:34)
[2020-01-31] MEDS: HEPARIN SOD 5,000 UNIT/0.5 ML VIAL SQ SCH ×2 (08:35→21:50)
[2020-01-31] MEDS: POLYETHYLENE (MIRALAX) 17 GM PACK PO SCH (08:35)
[2020-01-31] MEDS: SENNA 8.6 MG TAB PO SCH (08:35)
[2020-01-31] MEDS: MAGNESIUM HYDROXIDE SUSP 30 ML UDC PO SCH (08:35)
[2020-01-31 09:08] LABS: Est GFR (Non-African American) 105.2
[2020-01-31 09:54] LABS: Basophils # (auto) 0.02 K/uL (0-0.2); Basophils % (auto) 0.2 %; Eosinophils # (auto) 0.08 K/uL (0-0.5); Eosinophils % (auto) 0.9 %; Hematocrit (blood only) 48.2 % (42-52); Hemoglobin 16.4 g/dL (14.0-18.0); Immature Granulocytes % (auto) 2.3 %; Lymphocytes # (auto) 1.58 K/uL (1.2-3.4); Lymphocytes % (auto) 18.4 %; Mean Corpuscular Hemoglobin 29.7 pg (25-34); Mean Corpuscular Volume 87.2 fL (80-100); Mean Platelet Volume 10.2 fL (7.4-10.4); Monocytes # (auto) 1.06 K/uL (0.11-0.59); Monocytes % (auto) 12.3 %; Neutrophils # (auto) 5.66 K/uL (1.4-6.5); Neutrophils % (auto) 65.9 %; Platelet Count 373 K/uL (130-400); RDW Standard Deviation 41.6 fL (36.4-46.3); Red Blood Count 5.53 M/uL (4.7-6.1)
[2020-01-31 10:00] LABS: Potassium 4.1 mmol/L (3.5-5.1)
--- NOTE | 2020-01-31 22:37 | Hospitalist Progress Note ---
Date of Service January 31, 2020 Assessment & Plan (1) Pneumonia due to 2019-nCoV: see below continue Dexamethasone, Remdesivir completed 01/29 (2) Hypoxia: COVID + on Wednesday at facility, again in the ED CXR noted for b/l PNA acute hypoxic respiratory failure initially on 15L mask, down to 6 liters NC past two days, breathing comfortably finished Remdesivir continue Dexamethasone, day 6 today stop antibiotics as there is no sign of bacterial pneumonia, procalcitonin negative Patient became hypoxic today and required further oxygen. Patient improved though when placed on prone position. Patient was being monitored closely with pulse oximetry. (3) Constipation: 6 days since last BM, he is passing flatus eating well, no nausea, no distension started Miralax daily on 01/28, continue until he moves bowels (4) DVT prophylaxis: Heparin BID for DVT proph Of note, aspirin 81mg listed on pt's home medications Pt denies hx of [place] or daily aspirin 81mg use, this will be held Admission and Anticipated Discharge Date Admission Date: January 26, 2020 Subjective Was called by nurse as patient was having hypoxic episode, saturating below 88 with 10 liters oxymask. Patient was told be placed prone. Oxygen level improved. Review of Systems Review of Systems: All systems reviewed & are unremarkable except as noted in HPI & below Physical Exam Physical Exam: Constitutional: WD/WN, vitals as above Eyes: normal visual lopez by confrontation and + anicteric sclerae Neck: normal visual inspection and trachea midline Respiratory: normal respiratory effort, lungs clear to auscultation (using infection control stethoscope) Cardiovascular: Rate/Rhythm: regular rate and regular rhythm Gastrointestinal (Abdomen): Inspection/Auscultation: abdomen not distended Percussion/Palpation: abdomen soft; abdomen nontender Musculoskeletal: \Head/Neck/Chest: normocephalic and head atraumatic negative for edema, peripheral pulses intact Skin: no rashes, warm and dry Neurologic: awake; not confused Speech / Cognition: normal speech Psychiatric: A+Ox3, euthymic affect Results & Data Results & Data ([facility]) Vital Signs (Past 12 Hours) Vital Signs Temp Pulse Pulse Resp BP BP Pulse Ox 01/31/20 20:17 36.9 C 53 L 18 123/74 93 01/31/20 17:44 87 22 90 01/31/20 17:33 53 L 98 11/25/20 17:19 48 L 01/31/20 15:30 36.8 C 61 20 120/76 92 PG Care Time/CCT Total # of Minutes Spent Total Time Spent with Patient: Total time spent is greater than 50% in coordination of care (as documented) at patient's floor/unit and/or counseling patient: Coding Level of Care Code 61670 Subseq Hosp Care Lvl 3 Diagnoses Pneumonia due to 2019-nCoV U07.1; J12.89 Hypoxia R09.02 Constipation K59.00 DVT prophylaxis Z29.9 Time Spent (min) 35
[2020-02-01] MEDS: dexAMETHasone 6 MG in SYRINGE 0 ML IV SCH (09:12)
[2020-02-01] MEDS: HEPARIN SOD 5,000 UNIT/0.5 ML VIAL SQ SCH ×2 (09:13→22:01)
[2020-02-01] MEDS: SENNA 8.6 MG TAB PO SCH (09:13)
[2020-02-01] MEDS: POLYETHYLENE (MIRALAX) 17 GM PACK PO SCH (09:13)
[2020-02-01] MEDS: MAGNESIUM HYDROXIDE SUSP 30 ML UDC PO SCH (09:20)
--- NOTE | 2020-02-01 23:17 | Hospitalist Progress Note ---
Date of Service February 01, 2020 Assessment & Plan (1) Pneumonia due to 2019-nCoV: see below continue Dexamethasone, Remdesivir completed 01/29 (2) Hypoxia: COVID + on Wednesday at facility, again in the ED CXR noted for b/l PNA acute hypoxic respiratory failure initially on 15L mask, down to 6 liters NC past two days, breathing comfortably finished Remdesivir continue Dexamethasone, day 6 today stop antibiotics as there is no sign of bacterial pneumonia, procalcitonin negative Patient became more hypoxic on 01/30 and required further oxygen. Patient improved though when placed on prone position. On 01/31, oxygen requirements have decreased and he is now on 5 liters nasal cannula. Patient will continued to bemonitored closely with pulse oximetry. (3) Constipation: Over a wekk since last BM, he is passing flatus eating well, no nausea, no distension started Miralax daily on 01/28, continue until he moves bowels (4) DVT prophylaxis: Heparin BID for DVT proph Of note, aspirin 81mg listed on pt's home medications Pt denies hx of [place] or daily aspirin 81mg use, this will be held Admission and Anticipated Discharge Date Admission Date: January 26, 2020 Subjective He has not had a BM for days. He has no other complaints and reports feeling better. He is requiring less oxygen today. Review of Systems Review of Systems: All systems reviewed & are unremarkable except as noted in HPI & below Physical Exam Physical Exam: Constitutional: WD/WN, vitals as above Eyes: normal visual lopez by confrontation and + anicteric sclerae Neck: normal visual inspection and trachea midline Respiratory: normal respiratory effort, lungs clear to auscultation (using infection control stethoscope) Cardiovascular: Rate/Rhythm: regular rate and regular rhythm Gastrointestinal (Abdomen): Inspection/Auscultation: abdomen not distended Percussion/Palpation: abdomen soft; abdomen nontender Musculoskeletal: Head/Neck/Chest: normocephalic and head atraumatic negative for edema, peripheral pulses intact Skin: no rashes, warm and dry Neurologic: awake; not confused Speech / Cognition: normal speech Psychiatric: A+Ox3, euthymic affect Results & Data Results & Data ([facility]) Vital Signs (Past 12 Hours) Vital Signs Temp Pulse Pulse Resp BP BP Pulse Ox 02/01/20 20:00 37 C 57 L 20 111/71 91 02/01/20 16:28 36.9 C 70 20 113/73 93 02/01/20 16:00 68 02/01/20 13:00 93 02/01/20 12:59 36.7 C 74 18 110/70 92 PG Care Time/CCT Total # of Minutes Spent Total Time Spent with Patient: Total time spent is greater than 50% in coordination of care (as documented) at patient's floor/unit and/or counseling patient: Coding Level of Care Code 81079 Subseq Hosp Care Lvl 3 Diagnoses Pneumonia due to 2019-nCoV U07.1; J12.89 Hypoxia R09.02 Constipation K59.00 DVT prophylaxis Z29.9 Time Spent (min) 35
[2020-02-02] MEDS: dexAMETHasone 6 MG in SYRINGE 0 ML IV SCH (09:08)
[2020-02-02] MEDS: HEPARIN SOD 5,000 UNIT/0.5 ML VIAL SQ SCH ×2 (09:09→20:03)
[2020-02-02] MEDS: SENNA 8.6 MG TAB PO SCH (09:09)
[2020-02-02] MEDS: MAGNESIUM HYDROXIDE SUSP 30 ML UDC PO SCH (09:17)
[2020-02-02] MEDS: POLYETHYLENE (MIRALAX) 17 GM PACK PO SCH (09:17)
[2020-02-02 09:57] LABS: Hematocrit (blood only) 47.2 % (42-52); Hemoglobin 16.3 g/dL (14.0-18.0); Mean Corpuscular Hemoglobin 29.9 pg (25-34); Mean Corpuscular Hgb Conc 34.5 g/dL (32-36); Mean Corpuscular Volume 86.4 fL (80-100); Mean Platelet Volume 9.9 fL (7.4-10.4); Platelet Count 443 K/uL (130-400); RDW Coefficient of Variation 13.1 % (11.5-14.5); RDW Standard Deviation 41.2 fL (36.4-46.3); Red Blood Count 5.46 M/uL (4.7-6.1); White Blood Count 7.18 K/uL (4.8-10.8)
[2020-02-02 10:25] LABS: BUN Creatinine Ratio 14.2 (10-20); Creatinine Clr Calc Pharmacy 110.8 ml/min; Est GFR (African American) 115.9; Potassium 3.7 mmol/L (3.5-5.1)
--- NOTE | 2020-02-02 11:26 | Hospitalist Progress Note ---
Date of Service February 02, 2020 Assessment & Plan (1) Pneumonia due to 2019-nCoV: COVID + on 01/23/2020 at [facility] [place], again in the ED. - Remdesivir completed 01/30/2020 - Continue dexamethasone (Last day: 02/04/2020) - O2 PRN -> Proned much of 01/31; O2 requirements are still significant at 4L NC. (2) Constipation: BM on 01/31 after significant constipation. No abdominal pain today. - Continue bowel regimen (3) DVT prophylaxis: Heparin 5,000 units SQ Q12h Admission and Anticipated Discharge Date Admission Date: January 26, 2020 Subjective Doing well. No issues. Had BM yesterday; feeling better. Reports no fevers/chills, chest pain, shortness of breath, abdominal pain, nausea, or vomiting. Physical Exam Constitutional: WD/WN, vitals as above Eyes: EOM intact bilaterally; no conjunctival abnormality ENMT: external ear and nose normal, oropharynx normal Neck: trachea midline, no thyromegaly normal visual inspection Respiratory: normal respiratory effort, lungs clear to auscultation no respiratory distress Cardiovascular: RRR, no murmur, no edema Gastrointestinal (Abdomen): Inspection/Auscultation: abdomen normal to inspection; abdomen not distended Musculoskeletal: no cyanosis or clubbing, extremities motor strength 5/5 Skin: no rashes, warm and dry Neurologic: moves all extremities and awake Psychiatric: Orientation: alert, oriented to person and cooperative Results & Data Results & Data ([facility]) Vital Signs (Past 12 Hours) Vital Signs Temp Pulse Pulse Resp BP Pulse Ox 02/02/20 07:43 49 L 02/02/20 07:17 36.7 C 55 L 18 99/67 L 90 02/02/20 04:37 64 02/02/20 04:00 37 C 52 L 18 109/73 90 02/02/20 01:02 88 L PG Care Time/CCT Total # of Minutes Spent Total Time Spent with Patient: Total time spent is greater than 50% in coordination of care (as documented) at patient's floor/unit and/or counseling patient: Coding Level of Care Code 51260 Subseq Hosp Care Lvl 2 Diagnoses Pneumonia due to 2019-nCoV U07.1; J12.89 Constipation K59.00 DVT prophylaxis Z29.9
[2020-02-03 08:05] LABS: Hematocrit (blood only) 46.5 % (42-52); Hemoglobin 15.8 g/dL (14.0-18.0); Mean Corpuscular Hemoglobin 29.7 pg (25-34); Mean Corpuscular Volume 87.4 fL (80-100); Mean Platelet Volume 9.6 fL (7.4-10.4); Platelet Count 465 K/uL (130-400); RDW Coefficient of Variation 13.4 % (11.5-14.5); RDW Standard Deviation 42.5 fL (36.4-46.3); Red Blood Count 5.32 M/uL (4.7-6.1); White Blood Count 7.15 K/uL (4.8-10.8)
[2020-02-03 08:22] LABS: Albumin Level 2.8 gm/dl (3.4-5.0); BUN Creatinine Ratio 17.2 (10-20); Calcium 8.9 mg/dl (8.5-10.1); Creatinine Clr Calc Pharmacy 116.9 ml/min; Est GFR (African American) 123.6; Est GFR (Non-African American) 106.6; Magnesium 2.2 mg/dl (1.8-2.4); Potassium 4.1 mmol/L (3.5-5.1)
[2020-02-03 08:25] LABS: Albumin Globulin Ratio 0.7 (0.9-2); Bilirubin,Total 0.6 mg/dl (0.2-1); Globulin 4.1 gm/dl (2.5-4.0); Total Protein 6.9 gm/dl (6.4-8.2)
[2020-02-03] MEDS: HEPARIN SOD 5,000 UNIT/0.5 ML VIAL SQ SCH (08:51)
[2020-02-03] MEDS: dexAMETHasone 6 MG in SYRINGE 0 ML IV SCH (08:51)
[2020-02-03] MEDS: POLYETHYLENE (MIRALAX) 17 GM PACK PO SCH (08:52)
[2020-02-03] MEDS: SENNA 8.6 MG TAB PO SCH (08:52)
[2020-02-03] MEDS: MAGNESIUM HYDROXIDE SUSP 30 ML UDC PO SCH (08:52)
--- NOTE | 2020-02-05 21:35 | Discharge Summary ---
Date of Service February 03, 2020 Admission HPI Per Admitting Provider 34 y/o M c/o SOB. Pt was dx at [facility] with COVID on Wednesday. He has had progressive SALAZAR since that time and was found to be hypoxic in the mid-80s at the facility prior to being transferred to the ED at [facility]. He denies SOB at rest. He states he has been able to eat without issue, but his appetite is low. He has not had a bowel movement in 3-4 days. No diarrhea prior. No chest pain. Pt denies abd pain, LE pain or swelling. Pt has been having fevers. Pt states he has been getting tylenol at the facility Pt started on zosyn, dexamethasone, O2 via [place] and states he is feeling better overall, but still feels generally unwell. He has not been OOB to see if his SALAZAR is improving. Principal Diagnosis Covid 19 Pneumonia Discharge Exam Constitutional: WD/WN, vitals as above Eyes: EOM intact bilaterally; no conjunctival abnormality ENMT: external ear and nose normal, oropharynx normal Neck: trachea midline, no thyromegaly normal visual inspection Respiratory: normal respiratory effort, lungs clear to auscultation no respiratory distress Cardiovascular: RRR, no murmur, no edema Gastrointestinal (Abdomen): Inspection/Auscultation: abdomen normal to inspection; abdomen not distended Musculoskeletal: no cyanosis or clubbing, extremities motor strength 5/5 Skin: no rashes, warm and dry Neurologic: moves all extremities and awake Psychiatric: Orientation: alert, oriented to person and cooperative Discharge Data Allergies Allergy/AdvReac Type Severity Reaction Status Date / Time No Known Allergies Allergy Unverified 01/26/20 11:54 Consultations 01/26/20 12:27 ED Decision to Admit Stat Hospital Course (1) Pneumonia due to 2019-nCoV: COVID + on 01/23/2020 at long-term in [place], again in the ED. - Remdesivir completed 01/30/2020 - Continue dexamethasone (Last day: 02/04/2020) - O2 PRN -> Proned much of 01/31; O2 requirements improved over time, now at 3 liters nasal cannula. -ok for discharge. (2) Constipation: BM on 01/31 after significant constipation. No abdominal pain today. - Continue bowel regimen (3) DVT prophylaxis: Heparin 5,000 units SQ Q12h Total Time Total Time Spent Total Time Spent (In Minutes): 32 Total Time Includes: Examination of the Patient, Discharge Planning and Medication Reconciliation Discharge Plan Discharge Items [facility]position[facility] Reason For Visit: HYOPXIA Discharge Diagnosis: COVID-19 infection Condition on Discharge: Good Activity: Resume your previous activity Non-emergency contact: Primary Care Provider Call non-emergency contact if: you have any medication questions Follow-up/Referrals: PCP,NO [Primary Care Provider] - (You will follow up with the doctors at the long-term) Diet: Regular Addtl Attending Provider Instructions: Recommend proning and/or ambulating as needed. To help with oxygen level. Coronavirus disease 2019 (COVID-19) is a virus that causes a respiratory illness. It is caused by a coronavirus called 2019 novel coronavirus (2019- nCoV). There are many types of coronavirus. Coronaviruses are a very common cause of bronchitis. They may sometimes cause lung infection(pneumonia). Symptoms can range from mild to severe respiratory illness. These viruses are also foundin some animals. COVID-19 was first found in people in [facility], in late 2018. In 2020, several cases of COVID-19 have been confirmed in the [place] Public health officials are working to find the source. How the virus spreads is not yet fully known. It may be spread through droplets of fluid that a person coughs or sneezes into the air. It may be spread if you touch a surface with virus on it, such as a handle or object, and then touch your mouth. What are the symptoms of COVID-19? Some people have no symptoms or mild symptoms. Symptoms may appear 2 to 14 days after contact with the virus. Symptoms can include: Fever Coughing Trouble breathing What are possible complications from COVID-19? In many cases, this virus can cause infection (pneumonia) in both lungs. In some cases, this can cause . How is COVID-19 diagnosed? Your healthcare provider will ask about your symptoms. He or she will also ask about your recent travel and contact with sick people. Testing for the virus is only done through the CDC. If yourhealthcare provider thinks you may have COVID- 19, he or she will work with your local health department and the CDC on testing. Follow all instructions from your healthcare provider. COVID-19 is diagnosed by: Nasal and throat swab. A cotton-tipped swab is wiped inside your nose or throat. This is done to check for viruses in your nasal mucus. Sputum culture. A small sample of mucus coughed from your lungs (sputum) is collected if you have a cough. It is checked for the virus. How is COVID-19 treated? There is currently no medicine to treat the virus. Treatment is done to help your body while it fights the virus. This is known as supportive care. Supportive care may include: Pain medicine. These include acetaminophen and ibuprofen. They are used to help ease pain and reduce fever. Bed rest. This helps your body fight the illness. For severe illness, you may need to stay in the hospital. Care during severe illness may include: IV (intravenous) fluids.These are given through a vein to help keep your body hydrated. Oxygen. Supplemental oxygen or ventilation with a breathing machine (ventilator) may be given. This is done to keep enough oxygen in your body. Are you at risk for COVID-19? If youve been to a place where people have been sick with this virus, you are at risk for infection. You are at risk if you: Recently traveled to an affected area Had contact with a sick person who recently traveled to this area Had contact with a person who was diagnosed with COVID-19 How can COVID-19 be prevented? There is no vaccine yet. The best prevention is to not have contact with the virus. The CDC advises that people should not travel to areas where there are COVID-19 outbreaks right now for any reason that is not urgent. To help prevent spreading the infection, wash your hands often, or use an alcohol-basedhand manager background. If you are in an area with COVID-19: Wash your hands often. Or use an alcohol-based hand manager background often. Only touch your eyes, nose, or mouth with clean hands. Dont have contact with people who are sick. Follow local instructions about being in public. For example, you may be told to not use public transport for a period of time. Stay away from markets that have live or animals. Wash your hands after touching any animals. Don't touch animals that may be sick. Dont share eating or drinking tools with sick people. Dont kiss someone who is sick. Clean surfaces often with disinfectant. If you were in an area with COVID-19 in the last 14 days: Call your healthcare provider. He or she can talk with local health staff to see what action may be needed. Follow all instructions from your provider. Take your temperature every morning and evening for at least 14 days. This is to check for fever. Keep a record of the readings. Keep watch for symptoms of the virus. Tell your provider right away if you have symptoms. If you were in an area with COVID-19 and have a fever or other symptoms: Dont panic. Keep in mind that other illnesses can cause similar symptoms. Stay away from work, school, and public places. Limit physical contact with family members. Don't kiss anyone or share eating or drinking utensils. Clean surfaces you touch with disinfectant. This is to help prevent the virus from spreading. Call your healthcare provider. Explain that you have been exposed to COVID-19 and have symptoms. Do this before going to any hospital. Wait for instructions. Keep in mind that healthcare staff may wear protective equipment such as masks, gowns, gloves, and eye protection. You may be put in a separate room. This is to prevent the possible virus from spreading. Tell the healthcare staff about recent travel. This includes local travel on public transport. Staff may need to find other people you have been in contact with. Follow all instructions the healthcare staff give you. If you have been diagnosed with COVID-19 Follow all instructions from your healthcare provider. Dont leave your home, except to get medical care. Call your healthcare providers office before going. They can prepare and give you instructions. This will help prevent the virus from spreading. Dont go to work, school, or public areas. Dont use public transport or taxis. Stay away from other people in your home. Have them wear face masks around you. Dont share household items or food. Wear a face mask if you can. This includes at home or in a medical facility. Cover your face with a tissue when you cough or sneeze. Throw the tissue away. Wash your hands. Wash your hands often. Caregivers should: Follow all instructions from healthcare staff. Wear a face mask and protective clothing as advised. Wash hands often. Keep track of the sick persons symptoms. Clean surfaces, fabrics, and laundry thoroughly. Keep other people away from the sick person. When to call your healthcare provider Call your healthcare provider: If youve recently traveled and have symptoms If you have been diagnosed with COVID-19 and your symptoms are worse To learn more To find out more about COVID-19, visit the CDC website at www.cdc.gov/coronavirus/2019-ncov/index.html. 5977-[address] [employer] [place] [address]. All rights reserved. This information is not intended as a substitute for professional medical care. Always follow your healthcare professional's instructions. This information has been adapted from [employer] Pending Studies at Discharge: No Stand-Alone Forms: My [facility] [employer] Skilled Items Patient informed of condition?: No Discharge Level of Care: Skilled Communicable Disease: No Discharge Prognosis: Stable Lines: None Urinary Catheter: No Medications and DC Order Prescriptions: New dexamethasone [Decadron] 6 mg tablet 6 mg PO DAILY Qty: 1 RF: 0 sennosides [Senokot] 8.6 mg Tablet 17.2 mg PO QAM PRN (Reason: constipation) Qty: 10 RF: 0 polyethylene glycol 3350 [Miralax] 17 gram Powder In Packet 17 g PO DAILY PRN (Reason: constipation) Qty: 10 RF: 0 Continued acetaminophen [Tylenol] 325 mg Tablet 650 mg PO UD PRN (Reason: Fever Or Pain) RF: 0 Discharge Orders: Discharge Order (Routine); Ordered 02/03/20 Ordered By: Luis Alberto Jain Admission Data Admit Date/Time: 01/26/20 13:23 Attending Provider: Luis Alberto Jain Admit Provider: Lala Hamilton Primary Care Provider: PCP,NO Other Providers: Lala Hamilton ; Luis Alberto Jain Other Interventions: Discharge Summary Assessment (RN) Last Done: 02/03/20 14:39 Coding Level of Care Code D/C Day Management >30 mins Diagnoses Pneumonia due to 2019-nCoV U07.1; J12.89 Constipation K59.00 DVT prophylaxis Z29.9 Time Spent (min) 32
== END 2020-02-03 16:48 | DRG 177 ==
LOC: ED 10:25 → 2N 13:23 → SUATTDRO 13:23 → 2N 13:38 → 3W 02-02 18:18